=== PATIENT | male | born 1960 | race Caucasian/White ===

== ENCOUNTER → 2020-03-24 | Outpatient (CLI) | payer SELFPAY ==
[~2020-03-24] VITALS: Ht 180.3 cm; Wt 97.7 kg
[~2020-03-24] MED LIST: BAMLANIVIMAB (NON FORM) 700 MG in NS (IVPB) 100 ML IV ONE; EPINEPHrine INJECTION 1 MG/ML AMP IM PRN; diphenhydrAMINE 50 MG/ML INJ (BENADRYL) IV PRN
[2020-03-24 14:21] VITALS: BP 139/67
[2020-03-24 14:45] VITALS: BP 143/86
== END ==
LOC: INFUSION 13:47
PROVIDERS: ATTEND Nurse Practitioner Family
DX: U07.1 COVID-19 (principal); E11.9 Type 2 diabetes mellitus without complications; E78.2 Mixed hyperlipidemia